=== PATIENT | male | born 2000 | race Caucasian/White ===

== ENCOUNTER 2022-05-13 23:12 | Emergency (ER) | payer OTHER ==
[2022-05-13 23:19] VITALS: BP 134/81; PULSE 93; RESP 16; TEMP 99.1; BMI 29.2
[2022-05-14] MEDS ORDERED: AMOX TR/POTASSIUM CLAVULANATE 250 MG/5 ML BOTTLE PO ONE (00:01)
== END 2022-05-14 00:16 | disposition home or self-care (01) ==
LOC: FER 23:12
DX: H72.92 Unspecified perforation of tympanic membrane, left ear (principal)
CPT/HCPCS: 99283-25